=== PATIENT | male | born 1955 | race Caucasian/White ===

== ENCOUNTER 2023-03-26 13:39 | Emergency (ER) | payer MEDICARE ==
[~2023-03-26] VITALS: Ht 172.7 cm; Wt 67.1 kg
--- NOTE | 2023-03-26 14:00 | NUR ---
[id number] FROM HOME FOR DIZZINESS "ROOM IS SPINNING" X 2 DAYS. PLACED IN BED, AAOX4, BREATHING EVEN AND UNLABORED SATURATING AT 97%RA.
--- NOTE | 2023-03-26 14:14 | NUR ---
BLOOD DRAWN AND SENT TO LAB
[2023-03-26 14:37] LABS: BASOPHILS % (AUTO) 0.7 % (0.0-2.0); EOSINOPHILS % (AUTO) 1.8 % (0.0-6.0); HEMATOCRIT 44 % (39-51); HEMOGLOBIN 14.4 g/dL (13.5-17.5); LYMPHOCYTES # (AUTO) 1.1 K/uL (0.8-4.8); LYMPHOCYTES % (AUTO) 16.7 % (20.0-44.0); MEAN CORPUSCULAR HGB CONC 33 g/dl (31.0-36.0); MEAN CORPUSCULAR VOLUME 89 fL (80-96); MONOCYTES # (AUTO) 0.6 K/uL (0.1-1.30); MONOCYTES % (AUTO) 8.5 % (2.0-12.0); NEUTROPHILS # (AUTO) 4.8 K/uL (1.8-8.9); NEUTROPHILS % (AUTO) 72.3 % (43.0-81.0); PLATELET COUNT (AUTO) 265 K/uL (150-450); RED BLOOD CELL COUNT(AUTO) 4.89 MIL/uL (4.5-6.0); WHITE BLOOD COUNT (AUTO) 6.7 K/uL (4.3-11.0)
--- NOTE | 2023-03-26 14:38 | NUR ---
PATIENT TAKEN TO CT VIA [facility]
[2023-03-26] MEDS ORDERED: MECLIZINE HCL 12.5 MG TABLET ONE (14:40)
[2023-03-26 14:52] LABS: CALCIUM, SERUM 9.1 mg/dL (8.5-10.1); CARBON DIOXIDE 24 mmol/L (21-32); CHLORIDE 104 mmol/L (98-107); CREATININE 1.5 mg/dL (0.6-1.3); GLUCOSE 123 mg/dL (74-106); POTASSIUM 4.3 mmol/L (3.5-5.1); SODIUM SERUM 135 mmol/L (136-145); UREA NITROGEN, BLOOD 19 mg/dL (7-18)
[2023-03-26] MEDS ORDERED: MECLIZINE HCL 12.5 MG TABLET PO ONE (15:00)
[2023-03-26 15:03] LABS: ALANINE AMINOTRANSFERASE 33 U/L (12-78); ALBUMIN 3.6 g/dL (3.4-5.0); ALKALINE PHOSPHATASE 92 U/L (46-116); ASPARTATE AMINOTRANSFERASE 25 U/L (15-37); BILIRUBIN,DIRECT 0.2 mg/dL (0.0-0.2); BILIRUBIN,TOTAL 0.7 mg/dL (0.2-1.0); TOTAL PROTEIN, SERUM 7.3 g/dL (6.4-8.2)
[2023-03-26] MEDS ORDERED: MECL-159 PO ×2 (16:56→18:44)
[2023-03-26 17:14] VITALS: BP 154/86
--- NOTE | 2023-03-26 17:14 | NUR ---
Patient discharged to home in stable condition, ambulating. Written and verbal after care instructions given. Patient verbalizes understanding of instruction.
== END 2023-03-26 18:50 | disposition home or self-care (01) ==
LOC: ER 13:42
DX: R42 Dizziness and giddiness (principal); Z88.1 Allergy status to other antibiotic agents
CPT/HCPCS: 99285; 70450; 71045; 93005; 85025; 80048; 80076; 36415; 84484; 83880; 82962; J8597